=== PATIENT | male | born 1965 ===

== ENCOUNTER 2016-07-31 22:31 | Emergency (ER) | payer MEDICAID, OTHER ==
[~2016-07-31] VITALS: Ht 175.3 cm; Wt 84.5 kg
[~2016-07-31 22:31] MED LIST: HYDR-4003 PO; SUCR1TAB PO
[2016-07-31 22:40] VITALS: BP 116/82; PULSE 99; RESP 16; O2SAT 96
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
[2016-08-01] MEDS ORDERED: GABA-502 PO (00:05)
[2016-08-01 00:25] VITALS: BP 120/82; PULSE 92; RESP 16; O2SAT 97
== END 2016-08-01 00:26 | disposition home or self-care (01) ==
LOC: SED 22:31
DX: M79.662 Pain in left lower leg (principal); G89.21 Chronic pain due to trauma; Z87.891 Personal history of nicotine dependence; Z87.828 Personal history of other (healed) physical injury and trauma; Z59.0 Homelessness

== ENCOUNTER 2016-11-11 16:48 | Emergency (ER) | payer MEDICAID, OTHER ==
[~2016-11-11] VITALS: Ht 172.7 cm; Wt 84.1 kg
[~2016-11-11 16:48] MED LIST changes: +GABA-502 PO
[2016-11-11 16:56] VITALS: BP 125/91; PULSE 126; RESP 18; O2SAT 94
[2016-11-11 18:03] LABS: BASOPHILS % (AUTO) 0.1 % (0-3); EOSINOPHILS % (AUTO) 0 % (0-5); MONOCYTES % (AUTO) 6.8 % (4-12); Mean Corpuscular Hemoglobin 26.3 pg (27.0-35.0); Mean Corpuscular Volume 78.3 fL (81-100); Platelet Count 298 bil/L (150-400)
[2016-11-11] MEDS ORDERED: 0.9% Sodium Chloride 1,000 ML IV ONE (18:12)
[2016-11-11] MEDS ORDERED: Ondansetron 2 mg/mL 2 mL Inj IVPUSH ONE (18:15)
[2016-11-11] MEDS ORDERED: Pantoprazole 4 mg/mL 10 mL Inj IVPUSH ONE (18:15)
--- NOTE | 2016-11-11 18:19 | ED.REPORT ---
HPI-Abd Pain M 40 and Over Date of Service Nov 11, 2016 ED Provider: Chris Velazquez PA-C Nic is a 51-year-old male with a history of homelessness, alcoholism and pancreatitis who presents with abdominal pain. He reports a 2 day history of burning esophageal, epigastric and left upper quadrant pain which is aggravated by eating and drinking. He reports numerous episodes of vomiting without blood as well as diarrhea without blood today. At rest his pain localizes to the left upper quadrant he rates it a 10 out of 10 without radiation. Admits to chills. Denies fever, urinary symptoms, bloody/tarry stool, dyspnea, chest pain , cough. Patient states that he had an episode of pancreatitis 10 years ago which felt like this. Admits to alcohol consumption of approximately 6 beers per day. His last drink was at 9:00 this morning. Nursing Notes Stated Complaint: LEFT SIDE PAIN, ABDOMINAL PAIN Chief Complaint: Male Abdominal Pain Nursing Notes Reviewed: Yes Allergies: Coded Allergies: No Known Allergies (Verified , 11/11/16) Scheduled Gabapentin (Gabapentin) 300 Mg Capsule 300 MG PO TID Sucralfate (Sucralfate) 1,000 Mg Tablet 1,000 MG PO TIDAC Scheduled PRN Hydrocodone-Acetaminophen 5-325 mg (Hydrocodone-Acetaminophen 5-325 mg) 1 Each Tablet 1 TABLET PO Q4H PRN PRN For Pain General Time Seen by MD: 18:01 Chief Complaint Abdominal pain Sudden in Onset?: No Past Medical History Past Medical History Notes: PCP: [facility] Past Medical History Alcohol abuse Pancreatitis - chronic Seizures associated with alcohol withdrawal Past Surgical History Complex lower extremity surgery requiring ORIF (L koch) Surgery related to R-sided abdominal trauma Family History Reviewed, not relevant Smoking History Former Smoker Social History Alcohol Use: 1-3 per day Drug Use: THC Other Social History: Homeless Ambulatory Status Independent Review of Systems General: Denies fever, chills, malaise. Respiratory: Denies dyspnea, cough, shortness of breath, wheezing. Cardiovascular: Denies chest pain, palpitations. Gastrointestinal: Admits vomiting, diarrhea, abdominal pain. Genitourinary: Denies frequency, urgency, dysuria, hematuria, discharge. Otherwise as noted in HPI. Physical Exam General: Well appearing, well developed, well nourished, no acute distress. Head: Atraumatic, normocephalic. Eyes: No scleral icterus or injection. No discharge. Vision grossly intact. ENT: Voice clear, hearing grossly intact. Respiratory: Regular rate and rhythm. Breath sounds present, clear to auscultation and equal bilaterally. No respiratory distress. No increased work of breathing, speaks in complete sentences. Cardiovascular: Tachycardic rate with regular rhythm, without murmur, gallop or rub. No pedal edema. Gastrointestinal: Abdomen flat with moderate tenderness in the upper quadrants without guarding or rebound. Bowel sounds normoactive. Negative organomegaly, masses. Skin: Warm and dry. Neurological: Grossly nonfocal. Psychological: Alert and oriented. Speech appropriate, linear and logical. Behavior appropriate. Initial Vital Signs Vital Signs (First) Date Time Temp Pulse Resp B/P Pulse Ox O2 Delivery O2 Flow Rate FiO2 11/11/16 16:56 36.5 126 18 125/91 94 Room Air Initial VS: Vital signs abnormal (tachycardia) Interpretation & Diagnostics Lab Results Interpretation Result Diagram: 11/11/16 1758 11/11/16 1830 Test 11/11/16 17:58 11/11/16 18:30 White Blood Count 8.8th/mm3 (3.8-10.1) Red Blood Count 5.98mil/mm3 (4.40-5.80) Hemoglobin 15.7g/dL (13.8-17.2) Hematocrit 46.8% (41.0-50.0) Mean Corpuscular Volume 78.3fL (81-100) Mean Corpuscular Hemoglobin 26.3pg (27.0-35.0) Mean Corpuscular Hemoglobin Concent 33.5% (32.0-37.0) Red Cell Distribution Width 17.6% (12.3-15.4) Platelet Count 298bil/L (150-400) Neutrophils (%) (Auto) 83.0% (40-74) Lymphocytes (%) (Auto) 10.0% (14-46) Monocytes (%) (Auto) 6.8% (4-12) Eosinophils (%) (Auto) 0% (0-5) Basophils (%) (Auto) 0.1% (0-3) Hold Rodas Top Tube Received (Received) Urine Color Dark yellow (YELLOW) Urine Appearance Hazy (CLEAR,HAZY) Urine pH 6.0 (5.0-8.0) Urine Specific [place] 1.020 (1.003-1.035) Urine Protein 100mg/dL (NEG,TRACE) Urine Glucose (UA) Negativemg/dL (NEGATIVE) Urine Ketones 40mg/dL (NEGATIVE) Urine Occult Blood Trace (NEGATIVE) Urine Nitrite Negative (NEGATIVE) Urine Bilirubin Moderate (NEGATIVE) Urine Ictotest Positive (Negative) Urine Urobilinogen Normalmg/dL (NORMAL) Urine Leukocyte Esterase Negative (NEGATIVE) Hold Urine Received (Received) Sodium Level 130mEq/L (134-144) Potassium Level 3.3mEq/L (3.5-5.2) Chloride Level 85mEq/L (97-108) Carbon Dioxide Level 23mmol/L (18-29) Blood Urea Nitrogen 11mg/dL (6-24) Creatinine 0.72mg/dL (0.76-1.27) Estimat Glomerular Filtration Rate 122mL/min (>59) Glucose Level 118mg/dL (60-99) Calcium Level 9.8mg/dL (8.5-10.1) Magnesium Level 1.7mg/dL (1.6-2.6) Total Bilirubin 1.6mg/dL (0.0-1.2) Aspartate Amino Transf (AST/SGOT) 66U/L (0-50) Alanine Aminotransferase (ALT/SGPT) 38U/L (0-44) Alkaline Phosphatase 124U/L (25-150) Total Protein 7.8g/dL (6.4-8.4) Albumin 3.6g/dL (3.4-5.0) Lipase 29U/L (13-60) CT Abd / Pelvis Interpretation PROCEDURE: CT ABDOMEN AND PELVIS WITH CONTRAST ([id number]) INDICATIONS: 51 year-old male with left upper quadrant abdominal pain, and history of pancreatitis. IMPRESSION: 1. Punctate pancreatic calcifications consistent with chronic pancreatitis. No superimposed acute pancreatitis. 2. Diffuse fatty infiltration of the liver. 3. Scant sigmoid colon diverticulosis. 4. Unchanged nonacute T12 anterior wedge compression fracture. Interpretation / Wet Read by: Interpret - Radiologist Re-Eval/Medical Decision Med Decision/Clinical Course Nic is a 51-year-old male with history of homelessness, alcoholism and pancreatitis presenting with abdominal pain for 2 days as well as vomiting and diarrhea. Physical examination reveals upper quadrant tenderness and tachycardia. CMP reveals hyponatremia at 1:30, hypokalemia at 3.3 and hypochloremia at 85. His creatinine is low at 0.72 total bilirubin is high at 1.6 and AST is high at 66. CBC reveals no leukocytosis. urinalysis reveals positive ictotest, moderate bilirubin, trace occult blood, 40 ketones, [address] scan of the abdomen and pelvis with contrast reveals changes in the pancreas consistent with chronic pancreatitis, some diverticulosis, fatty liver disease and an old vertebral compression fracture. Tachycardias persistent after 1 L of normal saline, 30 of ketorolac, 4 of morphine. Patient reports his pain is improved however. I discussed the case with the hospitalist, seeking admission for pain control. He does not feel this is an appropriate admission. Ordered 1 L banana bag, 1 Ativan, morphine. We will reassess and consider discharge with pain medication. Consultation : Referral / Consult Name: Gage Tejada Call Returned at: 21:33 Note: Feels this is not acute process and not appropriate for admission. Requests that we give the patient another liter of fluid to attempt to improve tachycardia and discharged with pain medications as well as return precautions. Discharge & Departure Shift Change Sign-Out Patient Care Transferred: Yes (Dr. Fatima) Discussed Complaint(s): Yes Laboratory Evaluation: Lab evaluation discussed Imaging Studies: Imaging discussed Response to Therapy: Improved Primary Impression: Abdominal pain Abdominal location: left upper quadrant Qualified Code: R10.12 - Left upper quadrant pain Additional Impressions: CHRONIC PANCREATITIS Hypokalemia Vital Signs - All Vital Signs Date Time Temp Pulse Resp B/P Pulse Ox O2 Delivery O2 Flow Rate FiO2 11/11/16 20:28 114 18 122/89 95 Room Air 11/11/16 16:56 36.5 126 18 125/91 94 Room Air )( All Prior VS Reviewed: Yes Condition: Stable Patient Instructions: Acute Abdominal Pain (ED) Additional Instructions: Evaluation for abdominal pain in the emergency department. His trachea, physical, blood work, CT scan suggests that this pain is not caused by an immediately dangerous condition. You appear to have chronic pancreatitis, which could be causing this pain. This is aggravated by consumption of alcohol. It is important that you stop drinking alcohol. We will send you home with a small amount of pain medication. Please do not drink alcohol or operate a vehicle within 4 hours of taking this medication. I will also send you home with a small amount of antinausea medication. Please contact your primary care provider tomorrow to arrange follow-up. Return to the emergency department for any new or worsening symptoms including increasing pain, vomiting, fever. Referrals: [facility] WIL[facility] (PCP) EDSupervising Provider for APC: Hla Fatima DO Attending Statement I took a history performed an exam. Vimal has a very benign got. Laboratory work is reassuring. Warm and wanted to be admitted to the hospital. We consulted with the hospitalist for medical necessity. Our hospitalist felt that admission was unnecessary. He recommended IV hydration and close outpatient follow-up. We hydrated Mr. Keller. His symptoms are treated. At discharge she was feeling better and he was hemodynamically stable. I did ask him to come back in 12 hours if he is not significantly improved. copies to: [facility] WIL[facility] Seth PA-C Nov 11, 2016 18:19 Hal Fatima DO Nov 14, 2016 00:56
[2016-11-11 19:04] LABS: Magnesium 1.7 mg/dL (1.6-2.6)
--- NOTE | 2016-11-11 19:49 | DRSVH ---
PROCEDURE: CT ABDOMEN AND PELVIS WITH CONTRAST ([id number]) INDICATIONS: 51 year-old male with left upper quadrant abdominal pain, and history of pancreatitis. TECHNIQUE: After the administration of intravenous contrast, 5 mm thick sections acquired from the diaphragm to the symphysis. 5 mm coronal and sagittal reformats were acquired. For radiation dose reduction, the following was used: automated exposure control, adjustment of mA and/or kV according to patient siz e. COMPARISON: [facility], CT, CT ABD PELVIS W CON, 07/05/2015, 14:46. [facility], CT, CT ABD PELVIS W CON, 04/11/2015, 11:06. [facility], CT, ABD/PELVIS W/CON (PNL), 08/29/2014, 16:14. FINDINGS: Image quality: Excellent. ABDOMEN: Lung bases: Lung bases are clear. Heart size is normal. Solid organs: Liver and spleen are normal in size, with diffuse fatty infiltration of the liver. Ga llbladder wall thickness is normal. Biliary system is non dilated. Pancreas enhances normally, with scattered punctate calcifications now present. No peripancreatic inflammatory fat stranding or flui d collections. No adrenal nodules. Kidneys demonstrate normal size and enhancement, without hydronep hrosis. Peritoneum and bowel: Bowel loops demonstrate normal wall thickness and caliber. There is scant sig moid colon diverticulosis. No free fluid or air. Nodes and vessels: No retroperitoneal or mesenteric adenopathy by size criteria. Aorta and inferior vena cava are normal in size, with mild aortic atherosclerosis. Miscellaneous: No ventral hernias. PELVIS: Genitourinary: Bladder wall thickness is normal. Prostate gland is normal in size. Miscellaneous: No inguinal hernias or adenopathy. Bones: No suspicious bony lesions. Nonacute T12 anterior wedge compression fracture is unchanged sin 2014, with 32% height loss. IMPRESSION: 1. Punctate pancreatic calcifications consistent with chronic pancreatitis. No superimposed acute thurston creatitis. 2. Diffuse fatty infiltration of the liver. 3. Scant sigmoid colon diverticulosis. 4. Unchanged nonacute T12 anterior wedge compression fracture. Dictated by: Ish Sosa M.D. on 11/11/2016 at 19:35 Approved by: Ish Sosa M.D. on 11/11/2016 at 19:42
[2016-11-11 20:28] VITALS: BP 122/89; PULSE 114; RESP 18; O2SAT 95
[2016-11-11 20:42] LABS: APPEARANCE,URINE HAZY (CLEAR,HAZY); COLOR,URINE DARK YELLOW (YELLOW); OCCULT BLOOD,URINE TRACE (NEGATIVE); UROBILINOGEN,URINE NORMAL (NORMAL)
[2016-11-11 20:43] LABS: ICTOTEST,URINE POSITIVE (Negative)
[2016-11-11] MEDS ORDERED: Thiamine Inj 100 MG, Folic Acid Inj 1 MG, Magnesium Sulfate 50% Inj 2 GM, Multivitamins... IV ONE ×5 (21:35)
[2016-11-11] MEDS ORDERED: _HYDROcodone/APAP 5-325 mg Tablet PO PRN (21:35)
[2016-11-11] MEDS ORDERED: _Ondansetron ODT 4 mg Tablet PO PRN (21:50)
[2016-11-11 23:39] VITALS: BP 122/74; PULSE 107; RESP 16; O2SAT 95
== END 2016-11-11 23:38 | disposition home or self-care (01) ==
LOC: SED 16:48 → OSC 22:21 → UNDOADMOB 22:21 → SED 23:38
DX: R10.12 Left upper quadrant pain (principal); K86.1 Other chronic pancreatitis; E87.6 Hypokalemia; Z87.891 Personal history of nicotine dependence
CPT/HCPCS: 36415; 74177; 80053; 81002; 83690; 83735; 85025; 96361; 96374; 96375; 96376; 99285; J1885; J2060; J2270; J2405; J3475; J7030; Q9967

== ENCOUNTER 2017-03-09 17:02 | Emergency (ER) | payer MEDICAID, OTHER ==
[~2017-03-09] VITALS: Ht 165.1 cm; Wt 65.9 kg
[2017-03-09 17:20] VITALS: BP 119/78; PULSE 64; RESP 12; O2SAT 95
[2017-03-09 17:42] LABS: BASOPHILS % (AUTO) 1.2 % (0-3); MONOCYTES % (AUTO) 8.9 % (4-12); Mean Corpuscular Volume 88.8 fL (81-100); NEUTROPHILS % (AUTO) 65.6 % (40-74); Platelet Count 308 bil/L (150-400)
[2017-03-09 18:02] LABS: Magnesium 1.9 mg/dL (1.6-2.6)
[2017-03-09] MEDS ORDERED: Sucralfate 100 mg/mL 10 mL Suspension PO ONE (21:15)
--- NOTE | 2017-03-09 21:17 | ED.REPORT ---
HPI-Abd Pain M 40 and Over Date of Service Mar 09, 2017 ED Provider: Devin Fitzgerald MD Patient is a 51 year old male with a history of pancreatitis and alcoholism who presents to the ED complaining of upper abdominal pain onset yesterday. Associated symptoms include nausea and retching. He denies hematemesis, hematochezia, fever or dark/tarry stool The patient reports that he drinks daily and was hoping to go back to Crisis. Nursing Notes Stated Complaint: ABDOMINAL PAIN Chief Complaint: Male Abdominal Pain Nursing Notes Reviewed: Yes Allergies: Coded Allergies: No Known Allergies (Verified , 03/09/17) Scheduled Gabapentin (Gabapentin) 300 Mg Capsule 300 MG PO TID Sucralfate (Sucralfate) 1,000 Mg Tablet 1,000 MG PO TIDAC Scheduled PRN Hydrocodone-Acetaminophen 5-325 mg (Hydrocodone-Acetaminophen 5-325 mg) 1 Each Tablet 1 TABLET PO Q4H PRN PRN For Pain General Time Seen by MD: 21:07 Chief Complaint Abdominal pain Hx Obtained From: Patient Arrived By: Walk-in Sudden in Onset?: Yes Onset Occurred: Yesterday Symptom Duration: Since onset Location: : Abdomen upper Quality: Painful Radiation: : Does not radiate Severity: Current: Moderate Recent Healthcare: Recent doctor visit Similar Sx Previous: Yes Past Medical History Past Medical History Notes: PCP: [facility] Past Medical History Alcohol abuse Pancreatitis - chronic Seizures associated with alcohol withdrawal Past Surgical History Complex lower extremity surgery requiring ORIF (L koch) Surgery related to R-sided abdominal trauma Family History Reviewed, not relevant Smoking History Former Smoker Social History Alcohol Use: 1-3 per day Drug Use: THC Other Social History: Homeless Ambulatory Status Independent Review of Systems Constitutional: Denies: Chills, Fever Respiratory: Denies: Non-productive cough, Shortness of breath GI: Reports: Abdominal pain, Nausea, Denies: Bloody/tarry stool, Hematemesis, Hematochezia, Vomiting Complete sys rev & neg: except as marked. Skin: Denies Itching, Denies Rash Physical Exam Initial Vital Signs Vital Signs (First) Date Time Temp Pulse Resp B/P Pulse Ox O2 Delivery O2 Flow Rate FiO2 03/09/17 17:20 36.9 64 12 119/78 95 Room Air Initial VS: Reviewed General/Constitutional: Awake, Alert Respiratory / Chest: Atraumatic, Breath sounds NL, Breath sounds = bilat, No respiratory distress Cardiovascular: Heart rate NL, Regular rhythm, Heart sounds NL Abdomen: Atraumatic, Soft, No guarding, No rebound, No palpable mass tender upper abdomen Back: Atraumatic, Non-tender Head / Eyes: Atraumatic, Normocephalic, PERRL, EOMI Skin: Atraumatic, Color NL, No rash, Warm, Dry Neurologic: Oriented X3, Speech NL Lower Extremity / Pelvis / MS: Atraumatic, No edema Interpretation & Diagnostics Lab Results Interpretation Result Diagram: 03/09/17 1735 03/09/17 1735 Test 03/09/17 17:35 03/09/17 17:39 03/09/17 17:50 White Blood Count 4.9th/mm3 (3.8-10.1) Red Blood Count 4.19mil/mm3 (4.40-5.80) Hemoglobin 13.0g/dL (13.8-17.2) Hematocrit 37.2% (41.0-50.0) Mean Corpuscular Volume 88.8fL (81-100) Mean Corpuscular Hemoglobin 31.0pg (27.0-35.0) Mean Corpuscular Hemoglobin Concent 34.9% (32.0-37.0) Red Cell Distribution Width 15.6% (12.3-15.4) Platelet Count 308bil/L (150-400) Neutrophils (%) (Auto) 65.6% (40-74) Lymphocytes (%) (Auto) 22.9% (14-46) Monocytes (%) (Auto) 8.9% (4-12) Eosinophils (%) (Auto) 1.0% (0-5) Basophils (%) (Auto) 1.2% (0-3) Sodium Level 136mEq/L (134-144) Potassium Level 4.1mEq/L (3.5-5.2) Chloride Level 101mEq/L (97-108) Carbon Dioxide Level 18mmol/L (18-29) Blood Urea Nitrogen 5mg/dL (6-24) Creatinine 0.57mg/dL (0.76-1.27) Estimat Glomerular Filtration Rate 160mL/min (>59) Glucose Level 80mg/dL (60-99) Calcium Level 8.6mg/dL (8.5-10.1) Magnesium Level 1.9mg/dL (1.6-2.6) Total Bilirubin 0.6mg/dL (0.0-1.2) Aspartate Amino Transf (AST/SGOT) 60U/L (0-50) Alanine Aminotransferase (ALT/SGPT) 44U/L (0-44) Alkaline Phosphatase 120U/L (25-150) Total Protein 7.3g/dL (6.4-8.4) Albumin 3.4g/dL (3.4-5.0) Lipase 25U/L (13-60) Hold Urine Received (Received) Hold Rodas Top Tube Received (Received) Re-Eval/Medical Decision Time of Eval: 21:25 Re-Evaluation/Progress Note: Discussed that there are no beds available at [facility] at this time. Discussed plan for discharge. Patient understands and agrees to plan. All questions were addressed. Consultation : Call Returned at: 21:15 Note: Consult with [facility] who reports that they do not have any male beds available. Counseled Regarding: Diagnosis, Lab results, Need for follow-up, When/why to return to ED Discharge & Departure Primary Impression: Alcoholic gastritis Chronicity: unspecified Gastritis bleeding: without bleeding Qualified Code : K29.20 - Alcoholic gastritis without bleeding Disposition: Home Vital Signs - All Vital Signs Date Time Temp Pulse Resp B/P Pulse Ox O2 Delivery O2 Flow Rate FiO2 03/09/17 17:20 36.9 64 12 119/78 95 Room Air )( All Prior VS Reviewed: Yes Condition: Stable Patient Instructions: Alcohol Dependence (ED) Additional Instructions: Your labs today were normal and reassuring. [facility] did not have an available bed tonight but you can try tomorrow. Cessation of alcohol could help with your abdominal pain. Follow up with your primary care physician next week. Return to the emergency department if you develop any new or concerning symptoms. Referrals: NOPCP (PCP) [facility] Attestation Portions of this note were transcribed by Sherita Talley. I, Dr. Fitzgerald personally performed the history, physical exam and medical decision-making; I reviewed and confirmed the accuracy of the information in the transcribed note. Signed by: Sharyn Salgado, 03/09/17 Devin Fitzgerald MD Mar 09, 2017 21:17 Camille Talley Mar 09, 2017 21:23
[2017-03-09] MEDS ORDERED: SUCR1ORA2 PO (21:33)
== END 2017-03-09 22:16 | disposition home or self-care (01) ==
LOC: SED 17:02
DX: K29.20 Alcoholic gastritis without bleeding (principal); Z87.891 Personal history of nicotine dependence